=== PATIENT | male | born 1960 | race Two or more races ===

== ENCOUNTER 2024-02-04 07:53 | Outpatient (AMB) | payer MEDICAID, SELFPAY ==
[2024-02-04 08:10] VITALS: BP 137/78; PULSE 73; RESP 19; TEMP 36.4; O2SAT 98; BMI 28.3
--- NOTE | 2024-02-04 08:10 | PD.ORTHCLVIS ---
Vital signs 02/04/24 08:10 Height 1.68 m Height Method Stated Weight 80 kg Weight Measurement Method Estimated by Patient BMI 28.3 BP 137/78 H Blood Pressure Source Automatic Cuff Blood Pressure Location Right Upper Arm Position Sitting Respiration 19 Pulse 73 Pulse Source Monitor Temp 97.5 F Temp Source Temporal Artery Scan Pulse Oximetry (%) 98 Oxygen Delivery Method Room Air Med/Allergies Allergies & Medications Allergies No Known Allergies Allergy (Verified 02/04/24 08:11) Medication Reconciliation amlodipine 5 mg tablet 5 mg PO QDAY 06/11/23 [History Confirmed 02/04/24] atorvastatin 80 mg tablet 80 mg PO QHS 06/11/23 [History Confirmed 02/04/24] aspirin 325 mg tablet 325 mg PO BID #60 tabs 09/29/23 [Rx Confirmed 02/04/24] acetaminophen 500 mg tablet (Acetaminophen Extra Strength) 1,000 mg (2 x 500 mg) PO Q6H PRN pain #90 tabs 01/24/24 [Rx Confirmed 02/04/24] aspirin 81 mg tablet,delayed release 81 mg PO BID #60 tabs 01/24/24 [Rx Confirmed 02/04/24] doxycycline hyclate 100 mg tablet 100 mg PO BID #14 tabs 01/24/24 [Rx Confirmed 02/04/24] gabapentin 300 mg capsule 300 mg PO .qhs #30 caps 01/24/24 [Rx Confirmed 02/04/24] sennosides 8.6 mg-docusate sodium 50 mg tablet (Senna-S) 1 tab-cap PO QDAY #30 tabs 01/24/24 [Rx Confirmed 02/04/24] oxycodone 5 mg tablet 5 mg PO Q6H PRN pain #28 tabs 02/04/24 [Rx] Subjective Visit Visit for: post op #1 and knee Immunization / Flu Flu Vaccine in the Last 12 Months: No Flu Vaccine Exclusion Criteria: No Exclusion Criteria History of Present Illness Chief complaint: 2 WEEK POST OP Date of 1st surgery (if applicable): 01/24/2024 Patient is 2 weeks status post right total knee replacement. He is doing well. He has some pain. Personal History Occupation: DISABLED Red flag PMH: Blood thinners and none Pain Pain level (0-10): 5 Pain duration: ALL DAY Pain location: inside (medial), outside (lateral), anterior and posterior Pain quality: sharp, dull and aching Pain timing: night, increases with activity and stairs Associated signs & symptoms: numbness, weakness and stiffness Ambulatory data Ambulatory device: walker Treatments Improvement with previous injections: No Improvement with PT: No Improvement with NSAIDS: n/a Review of Systems Review of Systems: All systems negative unless otherwise noted in HPI. Exam Exam Patient is in no acute distress and is cooperative with the examination today. Patient has a normal mood and affect. Breathing is nonlabored. In no respiratory distress. Bilateral extremities were evaluated and demonstrates sensation intact to light touch. Palpable pedal pulses are present. No significant edema is present. Right knee incision is clean dry and intact. Range of motion is 15 to 80 degrees. There is some ecchymosis as expected Assessment and Plan Problem List (1) Status post total right knee replacement: Status: Acute Plan: Patient is a 63-year-old male status post right total knee replacement. We will see him in 4 weeks. He should work with outpatient physical therapy. He is doing well Office Procedures GNS Level of Care Nursing/Assessment Patient Status: Established Patient Nursing Assessment/Reassesment: Medication Reconciliation, Update PMH in EMR and Vital Signs Coordination of Care: Complex Care and Chronic Disease 1-5, Education Complex Pt/Fam, Consent,records obtained, informed consent, Results/Orders obtained and Staff clarify orders Special Needs: Language special needs Established Patient Charge Established Patient Point Assignment: 95 Established Patient Point Charge: EP Level 3 (80-115) Past Medical History Past Medical History Have you ever been diagnosed with any of the following: Neurological Problems Cerebrovascular Accident (CVA): Yes (February 2022) Seizures: No Cardiology Problems Hypercholesterolemia: Yes Congestive Heart Failure: No Hypertension: Yes Respiratory Problems Chronic Obstructive Pulmonary Disease (COPD): No Smoking: No Smoking Cessation Counseling: No Smoking Exposure: No Tobacco Use: No Stomache/Intestinal Problems Hepatitis: No Genital/Urinary Problems Renal Disease: No Musculoskeletal Problems Arthritis: Yes (knee) Endocrine Problems Diabetes Mellitus Type 1: No Diabetes Mellitus Type 2: No Other Problems Falls: No Blood Transfusions: No Blood Transfusion Reaction: No Anesthesia Reactions: No Cancer: No Surgical History Total Knee Replacement: Yes
== END 2024-02-04 08:19 | disposition home or self-care (01) ==
LOC: HODSRG 07:53
PROVIDERS: PCP Nurse Practitioner; Referring Provider Nurse Practitioner; Supervising Provider Orthopaedic Surgery Adult Reconstructive Orthopaedic Surgery; Visit Provider Orthopaedic Surgery Adult Reconstructive Orthopaedic Surgery
DX: Z47.1 Aftercare following joint replacement surgery (principal); Z96.651 Presence of right artificial knee joint; I10 Essential (primary) hypertension; E78.00 Pure hypercholesterolemia, unspecified; Z86.73 Personal history of transient ischemic attack (TIA), and cerebral infarction without residual deficits
CPT/HCPCS: 99213; G0463

== ENCOUNTER 2024-03-03 08:30 | Outpatient (AMB) | payer MEDICAID, SELFPAY ==
--- NOTE | 2024-03-03 08:40 | PD.ORTHCLVIS ---
Vital signs 03/03/24 08:46 Height 1.68 m Height Method Stated Weight 76.317 kg Weight Measurement Method Standing Scale BMI 27.0 BP 136/86 H Blood Pressure Source Automatic Cuff Blood Pressure Location Right Upper Arm Position Sitting Respiration 18 Pulse 75 Pulse Source Monitor Temp 97.2 F Temp Source Temporal Artery Scan Pulse Oximetry (%) 99 Oxygen Delivery Method Room Air Med/Allergies Allergies & Medications Allergies No Known Allergies Allergy (Verified 03/03/24 08:47) Medication Reconciliation amlodipine 5 mg tablet 5 mg PO QDAY 06/11/23 [History Confirmed 03/03/24] atorvastatin 80 mg tablet 80 mg PO QHS 06/11/23 [History Confirmed 03/03/24] aspirin 325 mg tablet 325 mg PO BID #60 tabs 09/29/23 [Rx Confirmed 03/03/24] acetaminophen 500 mg tablet (Acetaminophen Extra Strength) 1,000 mg (2 x 500 mg) PO Q6H PRN pain #90 tabs 01/24/24 [Rx Confirmed 03/03/24] gabapentin 300 mg capsule 300 mg PO .qhs #30 caps 01/24/24 [Rx Confirmed 03/03/24] oxycodone 5 mg tablet 5 mg PO Q6H PRN pain #28 tabs 02/04/24 [Rx Confirmed 03/03/24] Subjective Visit Visit for: post op #2 and knee Immunization / Flu Flu Vaccine in the Last 12 Months: Yes Flu Vaccine Exclusion Criteria: No Exclusion Criteria History of Present Illness Chief complaint: POST RIGHT TKA Date of 1st surgery (if applicable): 01/24/2024 Patient is 6 weeks status post right total knee replacement. He is doing well. He has some pain. Personal History Occupation: DISABLED Red flag PMH: none Pain Pain level (0-10): 3 Pain duration: ALL DAY Pain location: inside (medial), outside (lateral), anterior and posterior Pain quality: dull and aching Pain timing: increases with activity Associated signs & symptoms: stiffness Ambulatory data Ambulatory device: none Treatments Improvement with previous injections: No Improvement with PT: No Improvement with NSAIDS: n/a Review of Systems Review of Systems: All systems negative unless otherwise noted in HPI. Exam Exam Patient is in no acute distress and is cooperative with the examination today. Patient has a normal mood and affect. Breathing is nonlabored. In no respiratory distress. Bilateral extremities were evaluated and demonstrates sensation intact to light touch. Palpable pedal pulses are present. No significant edema is present. Right knee incision is clean dry and intact. Range of motion is 10 to 90 degrees. X-rays demonstrate a cementless right total knee replacement in good alignment position Assessment and Plan Problem List (1) Status post total right knee replacement: Status: Acute Plan: Patient is a 63-year-old male status post right total knee replacement. We will see him in 4 weeks For a motion check. He should continue to work with outpatient physical therapy. We discussed the importance of working with physical therapy and improving his range of motion. If he does not improve significantly we may have to do a manipulation. We will see him back in 4 weeks Office Procedures GNS Level of Care Nursing/Assessment Patient Status: Established Patient Nursing Assessment/Reassesment: Medication Reconciliation, Update PMH in EMR and Vital Signs Coordination of Care: Complex Care and Chronic Disease 1-5, Education Complex Pt/Fam, Consent,records obtained, informed consent, Results/Orders obtained and Staff clarify orders Special Needs: Language special needs Established Patient Charge Established Patient Point Assignment: 95 Established Patient Point Charge: EP Level 3 (80-115) Past Medical History Past Medical History Have you ever been diagnosed with any of the following: Neurological Problems Cerebrovascular Accident (CVA): Yes (February 2022) Seizures: No Cardiology Problems Hypercholesterolemia: Yes Congestive Heart Failure: No Hypertension: Yes Respiratory Problems Chronic Obstructive Pulmonary Disease (COPD): No Smoking: No Smoking Cessation Counseling: No Smoking Exposure: No Tobacco Use: No Stomache/Intestinal Problems Hepatitis: No Genital/Urinary Problems Renal Disease: No Musculoskeletal Problems Arthritis: Yes (knee) Endocrine Problems Diabetes Mellitus Type 1: No Diabetes Mellitus Type 2: No Other Problems Falls: No Blood Transfusions: No Blood Transfusion Reaction: No Anesthesia Reactions: No Cancer: No Surgical History Total Knee Replacement: Yes
[2024-03-03 08:46] VITALS: BP 136/86; PULSE 75; RESP 18; TEMP 36.2; O2SAT 99; BMI 27.0
== END 2024-03-03 09:23 | disposition home or self-care (01) ==
PROVIDERS: PCP Family Medicine; Referring Provider Family Medicine; Supervising Provider Orthopaedic Surgery Adult Reconstructive Orthopaedic Surgery; Visit Provider Orthopaedic Surgery Adult Reconstructive Orthopaedic Surgery
DX: Z96.651 Presence of right artificial knee joint (principal); I10 Essential (primary) hypertension; E78.00 Pure hypercholesterolemia, unspecified; Z86.73 Personal history of transient ischemic attack (TIA), and cerebral infarction without residual deficits
CPT/HCPCS: 99213; G0463

== ENCOUNTER 2024-03-31 15:02 | Outpatient (AMB) | payer MEDICAID, SELFPAY ==
[2024-03-31 15:07] VITALS: BP 144/88; BMI 28.1
--- NOTE | 2024-03-31 15:07 | RHCORTHONT_ITS ---
Vital signs 03/31/24 15:07 Height 1.68 m Height Method Stated Weight 79.549 kg Weight Measurement Method Standing Scale BMI 28.1 BP 144/88 H Blood Pressure Source Automatic Cuff Blood Pressure Location Right Upper Arm Position Sitting Med/Allergies Allergies & Medications Allergies No Known Allergies Allergy (Verified 03/03/24 08:47) Exam Exam Patient is in no acute distress and is cooperative with the examination today. Patient has a normal mood and affect. Breathing is nonlabored. In no respiratory distress. Bilateral extremities were evaluated and demonstrates sensation intact to light touch. Palpable pedal pulses are present. No significant edema is present. Right knee incision is clean dry and intact. Range of motion is 5 to 100 [address]. X-rays demonstrate a cementless right total knee replacement in good alignment position Assessment and Plan Problem List (1) Status post total right knee replacement: Status: Acute Plan: Patient is a 63-year-old male status post right total knee replacement. He has been working with physical therapy and the range of motion is improved. His swelling is also down. I am no longer worried about a manipulation. I discussed with him that he should continue to work with therapy Patient is doing well and we can see him in approximately 6 weeks. He is very. Questionairres Past Medical History Past Medical History Have you ever been diagnosed with any of the following: Neurological Problems Cerebrovascular Accident (CVA): Yes (February 2022) Seizures: No Cardiology Problems Hypercholesterolemia: Yes Congestive Heart Failure: No Hypertension: Yes Respiratory Problems Chronic Obstructive Pulmonary Disease (COPD): No Smoking: No Smoking Cessation Counseling: No Smoking Exposure: No Tobacco Use: No Stomache/Intestinal Problems Hepatitis: No Genital/Urinary Problems Renal Disease: No Musculoskeletal Problems Arthritis: Yes (knee) Endocrine Problems Diabetes Mellitus Type 1: No Diabetes Mellitus Type 2: No Other Problems Falls: No Blood Transfusions: No Blood Transfusion Reaction: No Anesthesia Reactions: No Cancer: No Surgical History Total Knee Replacement: Yes Subjective Immunization / Flu Flu Vaccine in the Last 12 Months: No Flu Vaccine Exclusion Criteria: Already Received History of Present Illness Chief complaint: Bilateral knee replacement Patient is a 63-year-old male status post right total knee replacement 2 months ago. He is doing well. He is working aggressively with physical therapy and has regained his motion. He should continue to go with therapy. The pain has subsided and so has the swelling Review of Systems Review of Systems: All systems negative unless otherwise noted in HPI.
== END 2024-03-31 15:15 | disposition home or self-care (01) ==
LOC: HODSRG 15:02
PROVIDERS: Supervising Provider Orthopaedic Surgery Adult Reconstructive Orthopaedic Surgery; Visit Provider Orthopaedic Surgery Adult Reconstructive Orthopaedic Surgery
DX: Z96.651 Presence of right artificial knee joint (principal); I10 Essential (primary) hypertension; E78.00 Pure hypercholesterolemia, unspecified
CPT/HCPCS: 99213; G0463

== ENCOUNTER 2024-06-01 13:17 | Outpatient (AMB) | payer MEDICAID, SELFPAY ==
--- NOTE | 2024-06-01 13:33 | PD.ORTHCLVIS ---
Vital signs 06/01/24 13:35 Height 1.68 m Height Method Stated Weight 80.853 kg Weight Measurement Method Standing Scale BMI 28.6 BP 127/83 Blood Pressure Source Automatic Cuff Blood Pressure Location Right Upper Arm Position Sitting Respiration 18 Pulse 76 Pulse Source Monitor Temp 97.8 F Temp Source Temporal Artery Scan Pulse Oximetry (%) 98 Oxygen Delivery Method Room Air Med/Allergies Allergies & Medications Allergies No Known Allergies Allergy (Verified 06/01/24 13:38) Medication Reconciliation amlodipine 5 mg tablet 5 mg PO QDAY 06/11/23 [History Confirmed 06/01/24] atorvastatin 80 mg tablet 80 mg PO QHS 06/11/23 [History Confirmed 06/01/24] aspirin 325 mg tablet 325 mg PO BID #60 tabs 09/29/23 [Rx Confirmed 06/01/24] acetaminophen 500 mg tablet (Acetaminophen Extra Strength) 1,000 mg (2 x 500 mg) PO Q6H PRN pain #90 tabs 01/24/24 [Rx Confirmed 06/01/24] gabapentin 300 mg capsule 300 mg PO .qhs #30 caps 01/24/24 [Rx Confirmed 06/01/24] oxycodone 5 mg tablet 5 mg PO Q6H PRN pain #28 tabs 02/04/24 [Rx Confirmed 06/01/24] Exam Exam Patient is in no acute distress and is cooperative with the examination today. Patient has a normal mood and affect. Breathing is nonlabored. In no respiratory distress. Bilateral extremities were evaluated and demonstrates sensation intact to light touch. Palpable pedal pulses are present. No significant edema is present. Bilateral knee incisions are clean dry intact. Range of motion is 0 to 105 degrees Assessment and Plan Problem List (1) Status post total right knee replacement: Status: Acute Plan: Patient is a 63-year-old male status post right and left total knee replacement. He is doing well and reports that he has no pain at all. Office Procedures GNS Level of Care Nursing/Assessment Patient Status: Established Patient Nursing Assessment/Reassesment: Medication Reconciliation, Update PMH in EMR and Vital Signs Coordination of Care: Complex Care and Chronic Disease 1-5, Education Complex Pt/Fam, Consent,records obtained, informed consent, Results/Orders obtained and Staff clarify orders Special Needs: Language special needs Established Patient Charge Established Patient Point Assignment: 95 Established Patient Point Charge: EP Level 3 (80-115) MA Intake Visit Data Collection New Patient or Established: Established Patient (seen at [facility] within 3 years) Reason for Visit:: FOLLOW UP Seen by Clinical Staff ONLY (RN/MA): No Verbal consent obtained for Telemed visit?: No PCP or OBGYN visit in last 3 months: Yes Hx Now: No Do You Feel Safe at Home: Yes Authorities Contacted: N/A Questionairres Past Medical History Past Medical History Have you ever been diagnosed with any of the following: Neurological Problems Cerebrovascular Accident (CVA): Yes (February 2022) Seizures: No Cardiology Problems Hypercholesterolemia: Yes Congestive Heart Failure: No Hypertension: Yes Respiratory Problems Chronic Obstructive Pulmonary Disease (COPD): No Smoking: No Smoking Cessation Counseling: No Smoking Exposure: No Tobacco Use: No Stomache/Intestinal Problems Hepatitis: No Genital/Urinary Problems Renal Disease: No Musculoskeletal Problems Arthritis: Yes (knee) Endocrine Problems Diabetes Mellitus Type 1: No Diabetes Mellitus Type 2: No Other Problems Falls: No Blood Transfusions: No Blood Transfusion Reaction: No Anesthesia Reactions: No Cancer: No Surgical History Total Knee Replacement: Yes Subjective Visit Visit for: follow up visit and knee Immunization / Flu Flu Vaccine in the Last 12 Months: Yes Flu Vaccine Exclusion Criteria: Already Received History of Present Illness Chief complaint: Bilateral knee replacement Patient is a pleasant [id number] with Bilateral total knee replacements done 4 and 7 months ago. He is doing well. He has no pain at all and reports that he is 100%. Review of Systems Review of Systems: All systems negative unless otherwise noted in HPI.
[2024-06-01 13:35] VITALS: BP 127/83; PULSE 76; RESP 18; TEMP 36.6; O2SAT 98; BMI 28.6
== END 2024-06-01 13:38 | disposition home or self-care (01) ==
LOC: HODSRG 13:17
PROVIDERS: Supervising Provider Orthopaedic Surgery Adult Reconstructive Orthopaedic Surgery; Visit Provider Orthopaedic Surgery Adult Reconstructive Orthopaedic Surgery
DX: Z96.653 Presence of artificial knee joint, bilateral (principal); I10 Essential (primary) hypertension; E78.00 Pure hypercholesterolemia, unspecified; Z86.73 Personal history of transient ischemic attack (TIA), and cerebral infarction without residual deficits
CPT/HCPCS: 99213; G0463

== ENCOUNTER 2025-02-01 10:52 | Outpatient (AMB) | payer MEDICAID, SELFPAY ==
--- NOTE | 2025-02-01 11:06 | ORTHONT_ITS ---
Vital signs 02/01/25 11:07 Height 1.68 m Height Method Stated Weight 81.788 kg Weight Measurement Method Standing Scale BMI 29.0 BP 126/78 Blood Pressure Source Automatic Cuff Blood Pressure Location Left Upper Arm Position Sitting Respiration 18 Pulse 65 Pulse Source Monitor Temp 97.3 F Temp Source Temporal Artery Scan Pulse Oximetry (%) 98 Oxygen Delivery Method Room Air Med/Allergies Allergies & Medications Allergies No Known Allergies Allergy (Verified 02/01/25 11:09) Medication Reconciliation amlodipine 5 mg tablet 5 mg PO QDAY 06/11/23 [History Confirmed 02/01/25] atorvastatin 80 mg tablet 80 mg PO QHS 06/11/23 [History Confirmed 02/01/25] aspirin 325 mg tablet 325 mg PO BID #60 tabs 09/29/23 [Rx Confirmed 02/01/25] acetaminophen 500 mg tablet (Acetaminophen Extra Strength) 1,000 mg (2 x 500 mg) PO Q6H PRN pain #90 tabs 01/24/24 [Rx Confirmed 02/01/25] gabapentin 300 mg capsule 300 mg PO .qhs #30 caps 01/24/24 [Rx Confirmed 02/01/25] oxycodone 5 mg tablet 5 mg PO Q6H PRN pain #28 tabs 02/04/24 [Rx Confirmed 02/01/25] Exam Exam Patient is in no acute distress and is cooperative with the examination today. Patient has a normal mood and affect. Breathing is nonlabored. In no respiratory distress. Bilateral extremities were evaluated and demonstrates sensation intact to light touch. Palpable pedal pulses are present. No significant edema is present. Bilateral knee incisions are clean dry intact. Range of motion is 0 to 105 degrees Assessment and Plan Problem List (1) Status post total right knee replacement: Status: Acute Plan: Patient is a 63-year-old male status post right and left total knee replacement. He is doing well and reports that he has no pain at all. We will see him back in 1 to 2 years Office Procedures GNS Level of Care Nursing/Assessment Patient Status: Established Patient Nursing Assessment/Reassesment: Medication Reconciliation, Update PMH in EMR and Vital Signs Coordination of Care: Complex Care and Chronic Disease 1-5, Education Complex Pt/Fam, Consent,records obtained, informed consent, Results/Orders obtained and Staff clarify orders Established Patient Charge Established Patient Point Assignment: 95 Established Patient Point Charge: EP Level 3 (80-115) MA Intake Visit Data Collection New Patient or Established: Established Patient (seen at [facility] within 3 years) Reason for Visit:: FOLLOW UP Seen by Clinical Staff ONLY (RN/MA): No Verbal consent obtained for Telemed visit?: No PCP or OBGYN visit in last 3 months: Yes Hx Now: No Do You Feel Safe at Home: Yes Authorities Contacted: N/A Questionairres Past Medical History Past Medical History Have you ever been diagnosed with any of the following: Neurological Problems Cerebrovascular Accident (CVA): Yes (February 2022) Seizures: No Cardiology Problems Hypercholesterolemia: Yes Congestive Heart Failure: No Hypertension: Yes Respiratory Problems Chronic Obstructive Pulmonary Disease (COPD): No Smoking: No Smoking Cessation Counseling: No Smoking Exposure: No Tobacco Use: No Stomache/Intestinal Problems Hepatitis: No Genital/Urinary Problems Renal Disease: No Musculoskeletal Problems Arthritis: Yes (knee) Endocrine Problems Diabetes Mellitus Type 1: No Diabetes Mellitus Type 2: No Other Problems Falls: No Blood Transfusions: No Blood Transfusion Reaction: No Anesthesia Reactions: No Cancer: No Surgical History Total Knee Replacement: Yes Subjective Visit Visit for: follow up visit and knee Immunization / Flu Flu Vaccine in the Last 12 Months: Yes Flu Vaccine Exclusion Criteria: Already Received History of Present Illness Chief complaint: Bilateral knee replacement Patient is a pleasant [id number] with Bilateral total knee replacements done 10 and 13 months ago. He is doing well. He has no pain at all and reports that he is 100%. Review of Systems Review of Systems: All systems negative unless otherwise noted in HPI.
[2025-02-01 11:07] VITALS: BP 126/78; PULSE 65; RESP 18; TEMP 36.3; O2SAT 98; BMI 29.0
--- NOTE | 2025-02-01 11:08 | XR_ITS ---
EXAMINATION: Bilateral knees 2 views Right lateral knee left lateral knee 2 views Bilateral axial knee single view TECHNIQUE: Bilateral AP knees standing single view Bilateral PA knees standing single view flexion Standing right lateral knee left lateral knee 2 views Bilateral axial knee single view total 5 views Date and time: February 01, 2025, 1128 hours INDICATIONS: History of bilateral knee replacements, left side 1.5 years ago right side 1 year ago FINDINGS: Moderate osteopenia. Bilateral total knee arthroplasties with satisfactory alignment. No loosening of the prosthetic components No patellar dislocations No fractures IMPRESSION: Bilateral total knee arthroplasties with satisfactory alignment
== END 2025-02-01 11:10 | disposition home or self-care (01) ==
LOC: HODSRG 10:52
PROVIDERS: Supervising Provider Orthopaedic Surgery Adult Reconstructive Orthopaedic Surgery; Visit Provider Orthopaedic Surgery Adult Reconstructive Orthopaedic Surgery
DX: Z47.1 Aftercare following joint replacement surgery (principal); Z96.653 Presence of artificial knee joint, bilateral
CPT/HCPCS: 73564; 99213; G0463